=== PATIENT | female | born 1970 | race Two or more races ===

== ENCOUNTER 2024-06-02 06:45 | Day surgery (SDC) | payer MEDICAID, SELFPAY ==
[2024-06-01 10:39] VITALS: BMI 31.6
[2024-06-02] VITALS (10 sets, daily range): BP systolic 114–179; BP diastolic 66–103; PULSE 52–68; RESP 13–20; TEMP 36.1–36.4; O2SAT 95–100; BMI 31.6
[2024-06-02] MEDS: SODIUM CHLORIDE 0.9% 500 ML 500 ML 100 ML IV (07:28)
[2024-06-02] MEDS: DiphenhydrAMINE INJ 50 MG/ML VIAL 25 MG IV (07:31)
[2024-06-02] MEDS: MIDAZOLAM INJ 1 MG/ML VIAL 2 ML (ASD USE ONLY) 2 MG IV (07:33)
[2024-06-02] MEDS: fentaNYL CIT INJ 50 mCg/ML AMP 2ML (ASD USE ONLY) IV (07:35)
[2024-06-02] MEDS: SIMETHICONE 40 MG/0.6 ML ORAL SYRINGE PO (07:36)
== END 2024-06-02 08:25 | disposition home or self-care (01) ==
PROVIDERS: PCP Family Medicine; Referring Provider Surgery; Visit Provider Surgery
PROC: 0DBE8ZX Excision of Large Intestine, Via Natural or Artificial Opening Endoscopic, Diagnostic (ICD-10-PCS; CPT 45380; principal; 2024-06-02 07:30)
DX: K64.1 Second degree hemorrhoids (principal); Z80.0 Family history of malignant neoplasm of digestive organs; K64.4 Residual hemorrhoidal skin tags; K57.31 Diverticulosis of large intestine without perforation or abscess with bleeding
CPT/HCPCS: 45378; J1200; J2250; J3010; J7040; A9270